=== PATIENT | female | born 1980 | race Caucasian/White ===

== ENCOUNTER → 2019-04-25 | Outpatient (CLI) | payer BC ==
[~2019-04-25] MED LIST: CITALOPRAM HYDR20 MG PO; MIRALAX PA17 GM/Dose PO; PROBIOTIC FORMU1 CAP; SENOKOT8.6 MG PO; STOOL SOFTENER100 M2
== END ==
LOC: MC.RAD 15:54
DX: Z12.31 Encounter for screening mammogram for malignant neoplasm of breast (principal); N63.10 Unspecified lump in the right breast, unspecified quadrant

== ENCOUNTER → 2019-05-01 | Outpatient (CLI) | payer BC | LOC: MC.RAD 13:00 | DX: N60.11 Diffuse cystic mastopathy of right breast (principal); N60.01 Solitary cyst of right breast ==

== ENCOUNTER 2019-07-09 16:16 | Outpatient (RCR) | payer BC | END 2019-10-07 | disposition still patient (30) | LOC: WSST | DX: R13.10 Dysphagia, unspecified (principal); R10.9 Unspecified abdominal pain ==

== ENCOUNTER → 2021-11-05 | Outpatient (CLI) | payer OTHER | LOC: COL.RAD 12:30 | DX: M47.816 Spondylosis without myelopathy or radiculopathy, lumbar region (principal); M51.36 Other intervertebral disc degeneration, lumbar region; M48.061 Spinal stenosis, lumbar region without neurogenic claudication ==